=== PATIENT | male | born 1950 | race Caucasian/White ===

== ENCOUNTER 2016-10-21 11:04 | Inpatient (IN) | payer MEDICARE, BC ==
[~2016-10-21 11:04] MED LIST: ASPIRIN EC81 MG PO; AUGMENTIN 875-11 TAB PO; DOXEPIN HCL10 M1 PO; FENOFIBRATE54 M1 PO; LISINOPRIL5 MG PO; NISOLDIPINE20 MG PO; NORCO 5/325 TAB1 TAB PO; OXYCODONE HCL5 M1 PO; PROAIR HFA8.5 GM INH; PROSCAR5 M1 PO; SULAR20 MG; SYMBICORT 160-1 PUFF INH; TOPROL XL25 M1 PO; TRIAMCINOLONE A15 G2 TP; TYLENOL325 M2 PO; ULTRAM50 M1 PO; ZOCOR40 M1 PO; [UNRECOGNIZED DRUG - REMARK]
[2016-10-21 11:53] LABS: INR 0.9 INR (0.9-1.1); PROTHROMBIN TIME 10.2 SECONDS (9.0-13.6)
[2016-10-22 06:24] LABS: BASO % 0.1 % (0-2); EOS % 0.1 % (0-7); HCT-HEMATOCRIT 35.7 % (36.0-53.5); HGB-HEMOGLOBIN 12.2 gm/dl (13.5-17.0); IMMATURE GRANULOCYTES ABSOLUTE 0.05 tho/cmm (0-0.03); IMMATURE GRANULOCYTES PERCENT 0.4 % (0-0.3); LYMPH % 5.2 % (20-45); LYMPH ABSOLUTE COUNT 0.6 tho/cmm (0.8-4.5); MCH (MEAN CORPUSCULAR HGB) 32.8 pg (28.0-32.0); MCHC MEAN CORPUSCULAR HGB CONC 34.2 % (32.0-36.0); MEAN PLATELET VOLUME 9.3 cmc (9.4-12.4); MONO % 6.6 % (0-12); MONOCYTE ABSOLUTE COUNT 0.8 tho/cmm (0.0-1.2); NEUTROPHIL ABSOLUTE COUNT 10.4 tho/cmm (1.6-8.0); NEUTROPHIL-AUTOMATED 10.4 tho/cmm (1.6-8.0); NEUTROPHILS % 87.6 % (40-80); PLATELET COUNT 204 tho/cmm (150-450); RED BLOOD COUNT 3.72 mil/cmm (4.40-5.70); RED CELL DISTRIBUTION WIDTH 12.3 % (12.4-16.4); WHITE BLOOD COUNT 11.8 tho/cmm (4.0-10.0)
[2016-10-22] MEDS ORDERED: MOBIC7.5 M2 PO (09:50)
== END 2016-10-23 15:49 | DRG 470 ==
LOC: SHSA 11:04 → ORE 12:55 → PACU 15:59 → 5EA 16:42
PROVIDERS: Physician Assistant; ADMIT Orthopaedic Surgery
PROC: 0SRD0JA Replacement of Left Knee Joint with Synthetic Substitute, Uncemented, Open Approach (ICD-10-PCS; principal; 2016-10-21)
DX: M17.12 Unilateral primary osteoarthritis, left knee (principal)
CPT/HCPCS: C1713; C1776; J0171; J0690; J1885; J2270; J2795